=== PATIENT | male | born 1995 | race Caucasian/White ===

== ENCOUNTER 2018-01-12 16:50 | Emergency (ER) | payer BC ==
[2018-01-12] MEDS ORDERED: Diphtheria,Pertussis(Acell),Tetanus Vaccine 0.5 ML SDV IM ONE (17:57)
--- NOTE | 2018-01-14 12:37 | ER ---
DATE SEEN: 01/12/2018 HISTORY OF PRESENT ILLNESS: A 22-year-old, nonsmoking, young man was using a skill saw and it jumped and caused a laceration to the left fourth radial side of his nondominant hand. He also has a superficial punctate laceration on the tip of the second finger. PAST MEDICAL HISTORY: Negative. ALLERGIES: Ragweed and sulfa. MEDICATIONS: Negative. REVIEW OF SYSTEMS: Negative. PHYSICAL EXAMINATION: VITAL SIGNS: Blood pressure 122/71, heart rate 51, respirations 18, oxygen saturation 99%, and temperature is 97.7 degrees. GENERAL: A pleasant, youthful young man who is anxious about his fingers. HEENT: Negative. LUNGS: Clear. HEART: Without abnormality. ABDOMEN: Negative. MUSCULOSKELETAL: Left extremity, left fourth digit, ulnar side, superficial laceration with denuded tissue along the lateral surface, 4.5 cm long, with a punctate, more proximal, 3-mm triangular laceration. Also, superficial laceration second finger ulnar tip, palmar surface, which does not require repair. PROCEDURE: The wounds were cleansed aggressively, and then under surgical scrub conditions and with running tap water, then again cleansed and then injected with lidocaine with epinephrine and closed with 6 stitches on the ulnar side of the fourth digit. The laceration extends from the tip of the finger to the proximal mid-phalange. He also has superficial laceration through the ulnar side of the distal half of the nail and into indeterminate level of the nail bed , approximately 6 mm to 8 mm long. This was cleansed also. The tip of his finger has an abrasion that was cleansed, but no closure was placed. A small suture was placed on a triangular hockey-stick laceration of about 5 to 6 mm proximal to the longer 4-cm laceration of left finger. PLAN: 1. The patient was given Keflex 500 mg t.i.d. 2. If any signs of redness, increased warmth, swelling, or marked pain, return to doctor earlier, otherwise have his stitches removed in 10 to 14 days. 3. Tetanus given to the patient. 4. He has a prescription for 8 tablets of hydrocodone for breakthrough pain that does not respond to 1000 mg of Tylenol with 600 mg ibuprofen. 5. Elevate his hand to diminish the pain and use ice packs to diminish the pain also and swelling. DIAGNOSES: Left finger laceration, 5 cm long, ulnar side, with punctate laceration proximal to this, also second left ulnar fingertip laceration not requiring suturing. /[id number] SARA/CORIN ROMAN
== END 2018-01-12 18:20 | disposition home or self-care (01) ==
LOC: FB.ED 16:50
DX: S61.215A Laceration without foreign body of left ring finger without damage to nail, initial encounter (principal); S61.211A Laceration without foreign body of left index finger without damage to nail, initial encounter; W27.0XXA Contact with workbench tool, initial encounter; Y92.009 Unspecified place in unspecified non-institutional (private) residence as the place of occurrence of the external cause; Z91.018 Allergy to other foods
CPT/HCPCS: 12002; 90471; 90715; 99282